=== PATIENT | female | born 1965 | race Two or more races ===

== ENCOUNTER → 2016-11-07 | Outpatient (REF) | payer OTHER ==
[2016-11-07 13:55] LABS: ALBUMIN 3.7 GM/DL (3.2-5.2); ALBUMIN/GLOBULIN RATIO 0.97 (1.00-1.93); ALKALINE PHOSPHATASE 93 U/L (45-117); ALT/SGPT 21 U/L (12-78); ANION GAP 8 MEQ/L (8-16); AST/SGOT 16 U/L (15-37); BILIRUBIN,TOTAL 0.5 MG/DL (0.2-1.0); BLOOD UREA NITROGEN 10 MG/DL (7-18); CALCIUM LEVEL 8.7 MG/DL (8.5-10.1); CARBON DIOXIDE LEVEL 27 MEQ/L (21-32); CHLORIDE LEVEL 106 MEQ/L (98-107); CHOLESTEROL LEVEL 236 MG/DL (<200); CREATININE FOR GFR 0.84 MG/DL (0.55-1.02); GLOMERULAR FILTRATION RATE > 60.0 (>58); GLUCOSE, FASTING 80 MG/DL (70-105); SODIUM LEVEL 141 MEQ/L (136-145); TOTAL PROTEIN 7.5 GM/DL (6.4-8.2); TRIGLYCERIDES LEVEL 69 MG/DL (<150)
[2016-11-07 14:20] LABS: BASO % 0.7 % (0.0-1.0); EOS # 0.2 K/mm3 (0.0-0.50); EOS % 4.2 % (0.0-3.0); LARGE UNSTAINED CELL # 0.1 K/mm3 (0.0-0.4); LARGE UNSTAINED CELL % 2.5 % (0.0-4.0); LYMPH % 39.2 % (24.0-44.0); MEAN CORPUSCULAR HEMOGLOBIN 26.8 pg (27.0-33.0); MEAN CORPUSCULAR HGB CONC 32.7 g/dl (32.0-36.5); MONO # 0.3 K/mm3 (0.0-0.8); MONO % 6.7 % (0.0-5.0); NEUTROPHILS # 2.2 K/mm3 (1.8-7.7); NEUTROPHILS % 46.7 % (36.0-66.0); PLATELET COUNT, AUTOMATED 346 k/mm3 (150-450); RED CELL DISTRIBUTION WIDTH 12.7 % (11.5-14.5); WHITE BLOOD COUNT 4.7 K/mm3 (4.0-10.0)
== END ==
LOC: M SFHCADAM 09:10
PROVIDERS: ATTEND Physician Assistant Medical
DX: Z00.00 Encounter for general adult medical examination without abnormal findings (principal)

== ENCOUNTER → 2017-10-03 | Outpatient (CLI) | payer OTHER | LOC: M RAD 15:17 | DX: Z12.31 Encounter for screening mammogram for malignant neoplasm of breast (principal) | CPT/HCPCS: 77067 ==

== ENCOUNTER → 2018-11-20 | Outpatient (CLI) | payer OTHER ==
--- NOTE | 2018-11-21 09:04 | REPMRS ---
Patient History The patient states she had a clinical breast exam in 2017. Family history of unknown cancer at age 37 in brother, unknown cancer at age 80 in father. Taking hormonal contraceptives for 25 years. 3D TOMOSYNTHESIS WAS PERFORMED. Digital Mammo Screening Bilat: November 20, 2018 - Exam #: [id number] Bilateral CC and MLO view(s) were taken. Technologist: Soniya Pratt, Technologist Prior study comparison: October 03, 2017, bilateral digital mammo screening bilat performed at [facility]. August 20, 2015, left breast digital mammo diagnostic unilateral performed at [facility]. FINDINGS: There are scattered fibroglandular densities. There is a fairly symmetric fibroglandular pattern in both breasts. There has been no interval development of masses, areas of architectural distortion or clusters of microcalcifications typical of malignancy. Assessment: BI-RADS/ACR category 2 mammogram. Benign Findings. Recommendation Routine screening mammogram of both breasts in 1 year (for women over age 40). This mammogram was interpreted with the aid of an FDA-approved computer-aided dectection system. Electronically Signed By: Pranay Reyes MD 11/21/18 [id number]
== END ==
LOC: M RAD 15:38
PROVIDERS: ATTEND Nurse Practitioner Family
DX: Z12.31 Encounter for screening mammogram for malignant neoplasm of breast (principal); Z92.0 Personal history of contraception

== ENCOUNTER → 2019-01-07 | Outpatient (REF) | payer OTHER | LOC: M SFHCPLAZ 18:11 | PROVIDERS: ATTEND Nurse Practitioner Adult Health | DX: J02.9 Acute pharyngitis, unspecified (principal) ==

== ENCOUNTER → 2019-08-13 | Outpatient (REF) | payer OTHER | LOC: M SFHCADAM 16:59 | PROVIDERS: ATTEND Physician Assistant | DX: E78.2 Mixed hyperlipidemia (principal); E55.9 Vitamin D deficiency, unspecified ==

== ENCOUNTER → 2020-08-24 | Outpatient (CLI) | payer OTHER ==
--- NOTE | 2020-08-24 14:48 | REPMRS ---
Patient History The patient states she has not had a clinical breast exam in over a year. Patient is postmenopausal and is nulliparous. No known family history of cancer. Taking hormonal contraceptives for 26 years. Digital Woman Screen Mammo: August 24, 2020 - Exam #: [id number] Bilateral CC and MLO view(s) were taken. Technologist: Guera Adler, Technologist Prior study comparison: November 20, 2018, bilateral digital mammo screening bilat, performed at [facility]. October 03, 2017, bilateral digital mammo screening bilat, performed at [facility]. August 04, 2015, bilateral digital mammo screening bilat, performed at [facility]. FINDINGS: There are scattered fibroglandular densities. The Volpara volumetric breast density category is:B. There is a stable nodular density in the anterior 3rd of the left breast containing calcifications unchanged from multiple prior studies. There has been no change in the appearance of the mammogram from the prior studies. There is a mild amount of scattered fibroglandular density which is fairly symmetric. There is no interval development of dominant mass, architectural distortion, or grouped microcalcification suggestive of malignancy. 3-D tomosynthesis shows no additional findings. Assessment: BI-RADS/ACR category 2 mammogram. Benign Findings. Recommendation Routine screening mammogram of both breasts in 1 year (for women over age 40). This patient's [facility] Lifetime Breast Cancer Risk is estimated at 11.6 %. This mammogram was interpreted with the aid of an FDA-approved computer-aided dectection system. Electronically Signed By: Derek Ashby MD 08/24/20 [id number]
== END ==
LOC: M WHC 13:29
PROVIDERS: ATTEND Family Medicine
DX: Z12.31 Encounter for screening mammogram for malignant neoplasm of breast (principal)

== ENCOUNTER 2020-11-04 11:53 | Emergency (ER) | payer OTHER ==
[~2020-11-04] VITALS: Ht 167.6 cm; Wt 67.9 kg
[2020-11-04] MEDS ORDERED: MULT-40 PO (12:05)
[2020-11-04] MEDS ORDERED: NOXI1TAB PO (12:05)
[2020-11-04] MEDS ORDERED: ERRI0.355 PO (12:05)
[2020-11-04] MEDS ORDERED: CVS1CAP2 PO (12:05)
[2020-11-04] MEDS ORDERED: ONDANSETRON 4MG/2ML VIAL IV ONE (12:30)
--- OUTSIDE RECORDS SUMMARY | 2020-11-04 12:50 | CCD ---
Author Author [facility] Address Unknown Phone Unavailable Care Team Providers Care Manager Creative Services Name Role Phone Girish, A Mary DDS Unavailable Unavailable Girish, A Mary DDS Unavailable Unavailable Girish, A Mary DDS Unavailable Unavailable Girish, A Mary DDS Unavailable [facility] Gen Conner DDS Unavailable Unavailable Gen Conner DDS Unavailable Unavailable Gen Conner DDS Unavailable Unavailable Prabhjot Gautam Unavailable Unavailable Prabhjot Gautam Unavailable Unavailable Prabhjot Gautam Unavailable Unavailable Prabhjot Gautam Unavailable Unavailable Prabhjot Gautam Unavailable Unavailable Prabhjot Gautam Unavailable Unavailable Prabhjot Gautam Unavailable Unavailable Prabhjot Gautam Unavailable Unavailable Prabhjot Gautam Unavailable Unavailable Prabhjot Gautam Unavailable Unavailable [place], J Ana PA Unavailable Unavailable [place], Prabhjot Perez PA Unavailable Unavailable [place], Prabhjot Perez PA Unavailable Unavailable [place], Prabhjot Perez PA Unavailable Unavailable [place], Prabhjot Perez PA Unavailable Unavailable [place], Prabhjot Perez PA Unavailable Unavailable [place], J Ana PA Unavailable Unavailable [place], J Ana PA Unavailable Unavailable [place], J Ana PA Unavailable Unavailable [place], Prabhjot Perez PA Unavailable Unavailable [place], Prabhjot Perez PA Unavailable Unavailable [place], Prabhjot Perez PA Unavailable Unavailable Re-disclosure Warning The records that you are about to access may contain information from federally-assisted alcohol or drug abuse programs. If such information is present, then the following federally mandated warning applies: This information has been disclosed to you from records protected by federal confidentiality rules (42 CFR part 2). The federal rules prohibit you from making any further disclosure of this information unless further disclosure is expressly permitted by the written consent of the person to whom it pertains or as otherwise permitted by 42 CFR part 2. A general authorization for the release of medical or other information is NOT sufficient for this purpose. The Federal rules restrict any use of the information to criminally investigate or prosecute any alcohol or drug abuse patient.The records that you are about to access may contain highly sensitive health information, the redisclosure of which is protected by Article 27-F of the [facility] Public Health law. If you continue you may have access to information: Regarding HIV / AIDS; Provided by facilities licensed or operated by the [facility] Office of Mental Health; or Provided by the [facility] Office for People With Developmental Disabilities. If such information is present, then the following [facility] mandated warning applies: This information has been disclosed to you from confidential records which are protected by state law. State law prohibits you from making any further disclosure of this information without the specific written consent of the person to whom it pertains, or as otherwise permitted by law. Any unauthorized further disclosure in violation of state law may result in a fine or usp sentence or both. A general authorization for the release of medical or other information is NOT sufficient authorization for further disc losure. 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 - NO Have you had contact with an individual with a confirmed Ebola Virus Disease within the last 21 days?- NO Family History Family Member Name Family Member Gender Family Member Status Date o f Status Description Data Source(s) Unknown Female Diagnosis 07/26/2016 12:00:00 AM EST [facility] ([facility]) Unknown Female Diagnosis 07/26/2016 12:00:00 AM EST [facility] ([facility]) Unknown Female Diagnosis 03/12/2014 12:00:00 AM EDT [facility] ([facility]) Encounters Encounter Providers Location Date Indications Data Source(s ) Attender: Ana NEVES [facility] 10/19 08:12:00 AM EST - 11/02/2020 08:12:00 AM EST [facility] ([facility]) Unknown<td ID="encounterTypeDescriptionI D0">H Adult Prophy</td><td>Miladis Brandt [facility]</td><td>[facility]</td><td>10/26/2020</td><td>11:13AM</td><td>11:52AM</td><td></td> Attender: Miladis Brandt RD [facility] 10/26/2020 11:13:[address] - 10/26/2020 11:52:00 AM EST [facility] ([facility]) Unknown<td ID="encounterTypeDescriptionI D1">D New Patient - 30</td><td>Mary Stout DDS</td><td>[facility]</td><td>09/01/2020</td><td>4:00PM</td><td>4:45PM</td><td></td> Attender: Mary Stout DDS [facility] 09/01/2020 04:00:00 PM EST - 09/01/2020 04:45:00 PM EST [facility] ([facility]) Unknown [address] [facility] [address] 08/10/2020 12:00:00 AM EST eCW1 ([facility]) Unknown<td ID="encounterTypeDescriptionI D2">D Emergency-New</td><td>Gen Kumari Ubaldo DDS</td><td>[facility]</td><td>06/18/2020</td><td>9:30AM</td><td>10:03AM</td><td></td> Attender: [place]ota Conner DDS [facility] 06/18/2020 09:30:00 AM EDT - 06/18/2020 10:03:00 AM EDT [place] ([facility]) OutpatientPREV VISIT, EST, AGE 40-64 Attender: Ana Jones 11/18/2019 03:45:00 PM EST - 11/18/2019 03:45:00 PM ES T Body mass index (BMI) 25.0-25.9, adultEncounter for oth screening for malignant neoplasm of breast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 model 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) (routine) w/o abn findingsEncounter for surveillance of contraceptive pillsEncounter for oth general cnsl and advice on contraceptionOther sex counselingHuman immunodeficiency virus [HIV] counseling [facility] ([facility]) Body mass index (BMI) 25.0-25.9, adult Encounter for oth screening for malignan t neoplasm of breast 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 model 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) (routine) w/o abn findings Encounter for surveillance of contracept rodrigue pills Encounter for oth general cnsl and advic e on contraception Other sex counseling Human immunodeficiency virus [HIV] couns eling Medications Medication Brand Name Start Date Product Form Dose Route Admi nistrative Instructions Pharmacy Instructions Status Indications Reaction Description Data Source(s) ORTHO MICRON TAB DIAL PARRIS {28 (norethindrone 0.35 MG Oral Ta blet) } Pack 11/02/2020 12:00:00 AM EST active Ortho Micronor 28 Day Pack [facility] ([facility]) Ortho Micronor 0.35 mg tablet {28 (norethindrone 0.35 MG Ora l Tablet) } Pack 11/18/2019 12:00:00 AM EST completed Ortho Micronor 28 Day Pack [facility] ([facility]) Ortho Micronor 0.35 mg tablet {28 (Norethindrone 0.35 MG Ora l Tablet) } Pack 12/07/2018 12:00:00 AM EDT completed Ortho Micronor 28 Day Pack [facility] ([facility]) Insurance Providers Payer name Policy type / Coverage type Policy ID Covered libertarian ID Covered libertarian's relationship to coker Policy Coker Plan Information [facility] [id number] HU2 [id number] Cigna [place] [id number] [facility] BEN[facility] O [id number] P [id number] ANSI-Commercial [id number] ANSI-Commercial [id number] [facility] [id number] HU2 [id number] [facility] [id number] HU2 [id number] [employer] [id number] HU2 N [id number] [employer] CO [id number] HU2 N [id number] [employer] [id number] 2 N [id number] [employer] [id number] [id number] Problems, Conditions, and Diagnoses Code Display Name Description Problem Type Effective Dates Data Source(s) Z00.00 [id number] Annual physical exam Problem 10/10/2019 12:0 0:00 AM EST eCW1 ([facility]) Surgeries/Procedures Procedure Description Date Indications Data Source(s) Prophylaxis Adult Prophylaxis Adult 10/26/2020 12:00:00 AM EST [facility]) Periodontal Charting Periodontal Charting 10/26/2020 12:00:00 AM ES T [facility] ([place]) Nutritional Counseling Nutritional Counseling 10/26/2020 12:00:00 A M EST [facility] ([place]) Panoramic radiographic image Panoramic radiographic image 12:00:00 AM EST [facility] ([facility]) Oral Hygiene/Cristóbal Inst Oral Hygiene/Cristóbal Inst 10/26/2020 12:00:00 AM EST [facility] ([facility]) Prophylaxis Adult Prophylaxis Adult 10/26/2020 12:00:00 AM EST [facility] ([facility]) Oral Cancer Screening Oral Cancer Screening 09/01/2020 12:00:00 AM EST [facility] ([facility]) Periodic Oral Evaluation Periodic Oral Evaluation 09/01/2020 12:00: 00 AM EST [facility] ([facility]) Bitewing - 4 radiographic images [place] - 4 radiographic i mages 09/01/2020 12:00:00 AM EST [facility] ([facility]) Limited Oral Evaluation Limited Oral Evaluation 06/18/2020 12:00:00 AM EDT [facility] ([facility]) intraoral-periapical first radiographic image intraora l-periapical first radiographic image 06/18/2020 12:00:00 AM EDT [facility] ([facility]) CVR Post Doctoral Fellow.Svc. STI / H 11/18/2019 12:00:00 AM EST - 11/18/2019 12:00:00 AM EST [facility] ([facility]) CVR Post Doctoral Fellow.Svc. Other 11/18/2019 12:00:00 AM EST - 2019 12:00:00 AM EST [facility] ([facility]) CVR Post Doctoral Fellow.Svc. Contraceptive 11/18/2019 12 :00:00 AM EST - 11/18/2019 12:00:00 AM EST [facility] ([facility]) CVR Med.Svc. Breast Exam 11/18/2019 12:0 0:00 AM EST - 11/18/2019 12:00:00 AM EST [facility] ([facility]) CVR STI TX Condyloma HPV 11/18/2019 12:0 0:00 AM EST - 11/18/2019 12:00:00 AM EST [facility] ([facility]) CVR Blood Pressure 11/18/2019 12:00:00 AM EST - 2019 12:00:00 AM EST [facility] ([facility]) CVR Med.Svc. Other 11/18/2019 12:00:00 AM EST - 2019 12:00:00 AM EST [facility] ([facility]) HCS Without Test 11/18/2019 12:00:00 AM EST - 11/18/19 20 12:00:00 AM EST [facility] ([facility]) PREV VISIT, EST, AGE 40-64 11/18/2019 12 :00:00 AM EST - 11/18/2019 12:00:00 AM EST [facility] ([facility]) Social History Code Duration Value Status Description Data Source(s ) Smoking 11/18/2019 12:00:00 AM EST Never smoker completed Never s moker [facility] ([facility]) Smoking 10/10/2019 12:00:00 AM EST Never Smoker completed Never S moker eCW1 ([facility]) Vital Signs ID Date Data Source UNK Name Value Range Interpretation Code Description Data Source(s) Body mass index (BMI) [Ratio] 25.34 kg/m2 Overweight 25.34 kg/m2 [facility] ([facility]) Diastolic blood pressure 78 mm[Hg] 78 mm[Hg] [facility] ([facility]) Systolic blood pressure 131 mm[Hg] 131 mm[Hg] N [facility] ([facility]) Body weight 71.214 kg 71.214 kg [facility] ([facility]) Body height 167.64 cm 167.64 cm [facility] ([facility]) Patient Treatment Plan of Care Planned Activity Planned Date Details Description Data Source (s) ORTHO MICRON TAB DIAL PARRIS 11/02/2020 12:00:00 AM EST [facility] ([facility]) Ortho Micronor 0.35 mg tablet 11/18/2019 12:00:00 AM EST [facility] ([facility]) Ortho Micronor 0.35 mg tablet 12/07/2018 12:00:00 AM EDT [facility] ([facility])
--- OUTSIDE RECORDS SUMMARY | 2020-11-04 12:50 | CCD ---
Author Author [facility] Organization [facility] [employer] Address Unknown Phone Unavailable Care Team Providers Care Route Deliverer Name Role Phone Lurdes Petersen Unavailable PROBLEMS Type Condition ICD9-CM Code CGB46-SI Code Onset Dates Condition S tatus SNOMED Code Notes Problem Vitamin D deficiency E55.9 Active 15123535 Problem Annual physical exam Z00.00 Active 094946212 Problem Mixed hyperlipidemia E78.2 Active [id number] ALLERGIES No Known Allergies ENCOUNTERS from 1965 to 2020-08-11 Encounter Location Date Provider Diagnosis [facility] [address] [place] [address] Jul, Mar sorin Petersen Breast screening Z12.39 IMMUNIZATIONS Vaccine Route Administration Date Status TDAP 0.5mL (Boostrix) IM Intramuscular Oct 31, 2016 Administe red Influenza (6mo & up) Fluzone Unknown Oct 31, 2016 Ref used SOCIAL HISTORY Tobacco Use: Social History Observation Description Date Details (start date - stop date) Never Smoker Sex Assigned At : Social History Observation Description Sex Assigned At Unknown Education: Question Answer Notes Level of Education: Finished College Associates Degree Audit Question Answer Notes Total Score: 0 Interpretation: Alcohol Education Language: Question Answer Notes Languages spoken: Y[place]ut Yarsani: Question Answer Notes [employer] Sexual Hx: Question Answer Notes Had sex in the last 12 months (vaginal, oral, or anal)? Yes with Men only Drug and Alcohol Question Answer Notes Total Score: 0 Interpretation: No problems reported Alcohol Screening: Question Answer Notes Did you have a drink containing alcohol in the past year? No Points 0 Interpretation Negative BMI Care Goal Follow-Up Question Answer Notes Below Normal BMI Follow-Up Dietary education for weight gain Tobacco Use: Question Answer Notes Are you a: never smoker REASON FOR REFERRAL No Information VITAL SIGNS No information MEDICATIONS Medication SIG (Take, Route, Frequency, Duration) Notes Start Da te End Date Status Multivitamin Adult - Orally Daily A ctive Rach 0.35 MG 1 tablet Orally Once a day for 28 day(s) Active Probiotic Daily - Orally Daily Acti ve Vitamin D3 Gummies Adult 25 MCG (1000 UT) 1 tablet Ora lly Once a day for 30 day(s) Active PROCEDURES No Information RESULTS No Results REASON FOR VISIT mammo order MEDICAL (GENERAL) HISTORY Type Description Date Medical History Vit d def Medical History hyperlipidemia Surgical History No know Surgical history Hospitalization History dehydration- [facility] 1990s Goals Section No Information Health Concerns No Information MEDICAL EQUIPMENT No Information MENTAL STATUS No Information FUNCTIONAL STATUS No Information ASSESSMENTS Encounter Date Diagnosis Assessment Notes Treatment Notes Treatm ent Clinical Notes Jul, Breast screening (ICD-10 - Z12.39) PLAN OF TREATMENT Future Test Test Name Order Date [facility] Zane Screening Bilateral (Ultrasound if Indicated ) (3D Mammo) [id number] Next Appt Details Provider Name:Lurdes Petersen, 2020-10-05 04:00:00 PM, [address], [place], [address], Insurance Providers Payer Name Payer Address Payer Phone Insured Name Patient Relati onship to Insured Coverage Start Date Coverage End Date [facility] BENEF[facility] PLAN [id number] [facility] Pranay Gibson
--- OUTSIDE RECORDS SUMMARY | 2020-11-04 12:50 | CCD ---
Author Author [facility] Organization [facility] Address [address] [place] [address] Phone Care Team Providers Care Micro Computer Specialist Name Role Phone Provider, Unassigned PP Unavailable Reason for Referral No Reason for Referral Recorded Problems Includes: Active, inactive, and resolved ProblemsNo Active Problems Plan of Treatment Future Appointments Date Time Location Provider D Dental Office Visit - 30 11/24/2020 10:45AM [facility] Maryruchi Stout DDS H Adult Prophy 01/28/2021 4:05PM [facility]g yousif [facility] Assessments Includes: Assessments for all patient encountersNo Assessments Recorded Instructions Instructions not supported for this document typeNo Instructions Recorded Medical Equipment - Implanted Devices Includes: Current and historical DevicesNo Medical Equipment Recorded Medications Includes: Current and historical Medications Past Medications on file Peridex 0.12 % Solution 10/17/2014 - 11/16/2014 Provider: Christine Mason DDS Diagnosis: rinse QD Amoxicillin 500 MG Tablet 10/17/2014 - 10/27/2014 Provider: Christine Mason DDS Diagnosis: three times a day Medications Administered Includes: Administered Medications in patient's chartNo Administered Medications Recorded Vital Signs Includes: Vital Signs from 10/26/2019 through 10/26/2020No Vital Signs Recorded For Specified Dates Results Includes: Results from 10/26/2019 through 10/26/2020No Results Recorded For Specified Dates History of Present Illness History of Present Illness not supported for this document typeNo History of Present Illness Recorded Social History No Social History Recorded - Smoking Status Unknown Procedures and Surgical History Includes: Procedures from 10/26/2019 through 10/26/2020 Procedures Code Diagnosis Performing Provider Service Location Service Date Prophylaxis Adult D1110 Encounter for dental exam and cleaning w/o abnormal findings Miladis Brandt [facility] 10/26/2020 Oral Hygiene/Cristóbal Inst D1330 Encounter for de ntal exam and cleaning w/o abnormal findings Miladis Brandt [facility] 10/26/2020 Panoramic radiographic image D0330 Encounter f or dental exam and cleaning w/o abnormal findings Miladis Brandt [facility] 10/26/2020 Nutritional Counseling D1310 Encounter for den sofía exam and cleaning w/o abnormal findings Miladis Brandt [facility] 10/26/2020 Periodontal Charting D0183 Encounter for denta l exam and cleaning w/o abnormal findings Miladis Brandt [facility] 10/26/2020 Prophylaxis Adult D1110 Encounter for dental exam and cleaning w/o abnormal findings Miladis Brandt [facility] 10/26/2020 Bitewing - 4 radiographic images D0274 Encount er for dental exam and cleaning w/o abnormal findings Mary A Girish S [facility] 09/01/2020 Periodic Oral Evaluation D0120 Encounter for d ental exam and cleaning w/o abnormal findings Mary Bryce Girish S [facility] 09/01/2020 Oral Cancer Screening D0191 Encounter for dent al exam and cleaning w/o abnormal findings Mary A Girish S [facility] 09/01/2020 intraoral-periapical first radiographic image D0220 Encounter for dental exam and cleaning w/o abnormal findings Gen Quoc Conner S [facility] 06/18 Limited Oral Evaluation D0140 Encounter for de ntal exam and cleaning w/o abnormal findings Gen Weinberguri Conner S [facility] 06/18/2020 Medical History Includes: Medical History in patient's chartNo Medical History Recorded Family History Includes: Family History in patient's chartNo Family History Recorded Review of Systems Review of Systems not supported for this document typeNo Review of Systems Recorded Mental Status Mental Status not supported for this document typeNo Mental Status Recorded Functional Status Functional Status not supported for this document typeNo Functional Status Recorded Physical Exam Physical Exam not supported for this document typeNo Physical Exam Recorded Immunizations Includes: Immunizations in patient's chartNo Immunizations Recorded Allergies Includes: Active, inactive, and resolved AllergiesNo Known Allergies Encounters Includes: Encounters from 10/26/2019 through 10/26/2020 Encounter Provider Location Date Check-In Time Check-Out Time D iagnosis H Adult Prophy Miladis Heathke [facility] 10/26/2020 11:13AM 11:52AM D New Patient - 30 Mary Stout DDS [facility] 09/01/2020 4:00PM 4:45PM D Emergency-New Gen Conner DDS [facility] 06/18/2020 9:30AM 1 0:03AM [Patient Encounter] Medina Castillo 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 - NO Have you had contact with an individual with a confirmed Ebola Virus Disease within the last 21 days?- NO Health Concerns Includes: Active Health ConcernsNo Active Health Concerns Recorded Goals Includes: Active GoalsNo Active Goals Recorded Interventions Includes: Interventions for active GoalsNo Interventions Recorded Evaluations & Outcomes Includes: Evaluations & Outcomes for active GoalsNo Outcomes Recorded
[2020-11-04 12:53] LABS: BASO % 0.4 % (0.0-1.0); EOS # 0.1 10^3/uL (0.0-0.5); EOS % 1.1 % (0.0-3.0); HEMATOCRIT 36.8 % (36.0-47.0); HEMOGLOBIN 11.9 g/dl (12.0-15.5); LYMPH # 1.8 10^3/uL (1.5-5.0); LYMPH % 19.8 % (24.0-44.0); MEAN CORPUSCULAR HEMOGLOBIN 26.9 pg (27.0-33.0); MEAN CORPUSCULAR HGB CONC 32.3 g/dl (32.0-36.5); MEAN CORPUSCULAR VOLUME 83.3 fl (80.0-96.0); MONO # 1.1 10^3/uL (0.0-0.8); MONO % 11.4 % (2.0-8.0); NEUTROPHILS # 6.2 10^3/uL (1.5-8.5); NEUTROPHILS % 66.9 % (36.0-66.0); PLATELET COUNT, AUTOMATED 261 10^3/uL (150-450); RED BLOOD COUNT 4.42 10^6/uL (4.00-5.40); WHITE BLOOD COUNT 9.3 10^3/uL (4.0-10.0)
--- NOTE | 2020-11-04 13:01 | REP ---
INDICATION: rlq pain appi vs renal colic COMPARISON: None. TECHNIQUE: Helical scanning is acquired in 4 mm axial images were reformatted. Coronal and sagittal MPR images were generated and reviewed. 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 There is mild bibasilar platelike atelectasis. No pleural effusion is seen. The liver and the spleen are normal in size homogeneous in texture. No adrenal abnormality is observed. No abnormality is noted in the pancreas. The kidneys are morphologically intact. No hydronephrosis or intrarenal calculus is seen. There is inflammatory reaction in the pericolic soft tissues adjacent to the proximal ascending colon, just below the hepatic flexure. The pericolonic edema and phlegmonous reaction abuts the fundus of the gallbladder as well as the descending duodenum and extends of along the posterior wall the colon where there is at least 1 colonic diverticulum. There is mural thickening in this segment of the colon the changes are most compatible with right colonic diverticulitis. The tip of the cecum is well below this level. The appendix is not definitely identified, however, there is no inflammatory change is at the level of the cecal tip or a ileocecal valve. There is no evidence of abscess or free intraperitoneal air. A tiny sliver of fluid is seen in the cul-de-sac. Uterus is tipped to the left. No adnexal abnormality is seen. Urinary bladder is unremarkable. Small and large bowel loops are otherwise unremarkable. IMPRESSION: Phlegmonous reaction adjacent to the proximal ascending colon just below the hepatic flexure with a visible ascending colon diverticulum. Changes most compatible with right colonic diverticulitis. There is adjacent inflammatory change affecting the descending duodenum and the fundus of the gallbladder. No abscess or free air is seen. The appendix is not directly visualized but the cecal tip is distant to the site of right colonic inflammation. <Electronically signed by Derek Ashby > 11/04/20 [id number]
[2020-11-04] MEDS ORDERED: FLAG500T PO (13:16)
[2020-11-04] MEDS ORDERED: CIPR-249 PO (13:16)
[2020-11-04 13:17] LABS: ALBUMIN 3.8 GM/DL (3.2-5.2); ALT/SGPT 16 U/L (12-78); BILIRUBIN,DIRECT 0.2 MG/DL (0.0-0.2); BILIRUBIN,TOTAL 0.5 MG/DL (0.2-1.0); BLOOD UREA NITROGEN 19 MG/DL (7-18); CARBON DIOXIDE LEVEL 28 MEQ/L (21-32); CHLORIDE LEVEL 103 MEQ/L (98-107); CREATININE FOR GFR 0.88 MG/DL (0.55-1.30); GLOMERULAR FILTRATION RATE > 60.0 (>51); GLUCOSE, FASTING 80 MG/DL (70-100); LIPASE 185 U/L (73-393); POTASSIUM SERUM 3.6 MEQ/L (3.5-5.1); SODIUM LEVEL 139 MEQ/L (136-145); TOTAL PROTEIN 7.5 GM/DL (6.4-8.2)
[2020-11-04 13:27] VITALS: BP 125/64
[2020-11-04 13:34] LABS: INR 1.14; PROTHROMBIN TIME 14.9 SECONDS (12.5-14.3)
== END 2020-11-04 13:29 | disposition home or self-care (01) ==
LOC: M ED 11:53
DX: K57.32 Diverticulitis of large intestine without perforation or abscess without bleeding (principal); Z79.899 Other long term (current) drug therapy

== ENCOUNTER → 2021-11-09 | Outpatient (CLI) | payer OTHER ==
[~2021-11-09] MED LIST: CIPR-249 PO; CVS1CAP2 PO; ERRI0.355 PO; FLAG500T PO; MULT-40 PO; NOXI1TAB PO
== END ==
LOC: M WHC 14:29
PROVIDERS: ATTEND Physician Assistant Medical
DX: Z12.31 Encounter for screening mammogram for malignant neoplasm of breast (principal)

== ENCOUNTER → 2021-11-23 | Outpatient (CLI) | payer OTHER | LOC: M WHC 13:14 | PROVIDERS: ATTEND Physician Assistant Medical | DX: Z12.31 Encounter for screening mammogram for malignant neoplasm of breast (principal) ==

== ENCOUNTER → 2023-06-29 | Outpatient (CLI) | payer OTHER | LOC: M WHC 07:03 | PROVIDERS: ATTEND Physician Assistant Medical | DX: Z12.31 Encounter for screening mammogram for malignant neoplasm of breast (principal) ==

== ENCOUNTER → 2023-07-17 | Outpatient (CLI) | payer OTHER | LOC: M WHC 15:14 | PROVIDERS: ATTEND Physician Assistant Medical | DX: Z12.31 Encounter for screening mammogram for malignant neoplasm of breast (principal) ==

== ENCOUNTER → 2024-08-06 | Outpatient (CLI) | payer OTHER ==
[~2024-08-06] MED LIST changes: +METR-265 PO
== END ==
LOC: M WHC 15:30
PROVIDERS: ATTEND Physician Assistant
DX: Z12.31 Encounter for screening mammogram for malignant neoplasm of breast (principal)

== ENCOUNTER → 2025-08-05 | Outpatient (CLI) | payer OTHER | LOC: M WHC 07:24 | PROVIDERS: ATTEND Physician Assistant Medical | DX: Z12.39 Encounter for other screening for malignant neoplasm of breast (principal); Z53.9 Procedure and treatment not carried out, unspecified reason ==

== ENCOUNTER → 2025-08-08 | Outpatient (CLI) | payer OTHER | LOC: M WHC 14:57 | PROVIDERS: ATTEND Physician Assistant | DX: Z12.31 Encounter for screening mammogram for malignant neoplasm of breast (principal) ==